=== PATIENT | male | born 1995 | race Hispanic/Latino ===

== ENCOUNTER 2024-04-26 14:01 | Emergency (ER) | payer BC, SELFPAY ==
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
--- NOTE | 2024-04-26 14:49 | RAD REPORT ---
EXAM DESCRIPTION: RAD - Shoulder Right 2 View - 04/26/2024 2:34 pm CLINICAL HISTORY: PAIN COMPARISON: <Comparisons> FINDINGS: No fracture or dislocation is seen.
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
[2024-04-26 16:05] VITALS: BP 150/66; TEMP 98.5; O2SAT 99
== END 2024-04-26 15:59 | disposition home or self-care (01) ==
LOC: ER 14:01
DX: S16.1XXA Strain of muscle, fascia and tendon at neck level, initial encounter (principal)
CPT/HCPCS: 70491; 71260; 72125; 99284; Q9967